=== PATIENT | female | born 1950 | race Caucasian/White ===

== ENCOUNTER → 2017-02-13 08:21 | Outpatient (CLI) | payer OTHER | END | disposition home or self-care (01) | LOC: D.CT 08:21 | DX: R10.84 Generalized abdominal pain (principal) ==

== ENCOUNTER → 2017-03-10 16:47 | Outpatient (CLI) | payer OTHER | END | disposition home or self-care (01) | LOC: D.MAMMO 16:47 | DX: Z12.31 Encounter for screening mammogram for malignant neoplasm of breast (principal) ==

== ENCOUNTER → 2017-04-22 13:38 | Outpatient (CLI) | payer MEDICARE | END | disposition home or self-care (01) | LOC: D.MAMMO 09:00 | DX: R92.8 Other abnormal and inconclusive findings on diagnostic imaging of breast (principal) ==

== ENCOUNTER → 2018-01-16 07:17 | Outpatient (CLI) | payer MEDICARE, OTHER | END | disposition home or self-care (01) | LOC: D.US 07:17 | DX: R10.9 Unspecified abdominal pain (principal) ==

== ENCOUNTER → 2018-06-17 19:02 | Outpatient (CLI) | payer MEDICARE, OTHER | END | disposition home or self-care (01) | LOC: D.MAMMO 13:15 | DX: Z12.31 Encounter for screening mammogram for malignant neoplasm of breast (principal) ==

== ENCOUNTER → 2018-07-20 08:08 | Outpatient (CLI) | payer MEDICARE, OTHER ==
[2018-07-20 09:38] LABS: ALBUMIN 3.6 g/dL (3.4-5.0); BILIRUBIN - DIRECT 0.15 mg/dL (0.00-0.30); BILIRUBIN - INDIRECT 0.51 mg/dL (0.00-1.00); BILIRUBIN - TOTAL 0.66 mg/dL (0.2-1.3); PROTEIN - SERUM 7.3 g/dL (6.4-8.2)
== END | disposition home or self-care (01) ==
LOC: D.US 08:08
PROVIDERS: Internal Medicine Gastroenterology
DX: K76.0 Fatty (change of) liver, not elsewhere classified (principal)

== ENCOUNTER → 2018-10-29 10:20 | Outpatient (CLI) | payer MEDICARE, OTHER ==
[~2018-10-29 10:20] MED LIST: LIPITOR10 MG PO
== END | disposition home or self-care (01) ==
LOC: D.US 10:20
PROVIDERS: ATTEND Surgery
DX: I83.893 Varicose veins of bilateral lower extremities with other complications (principal)

== ENCOUNTER 2018-10-29 13:20 | Emergency (ER) | payer MEDICARE, OTHER ==
[~2018-10-29] VITALS: Ht 165.1 cm; Wt 68.2 kg
[2018-10-29 13:29] VITALS: Ht 165.1 cm; Wt 68.2 kg
[2018-10-29] MEDS ORDERED: LIPITOR10 MG PO (13:33)
[2018-10-29 14:08] LABS: BASOPHILS 0.6 % (0-2); EOSINOPHILS 1.2 % (0-7); HEMATOCRIT 41.2 % (36.0-48.0); HEMOGLOBIN 13.4 g/dL (12-16); MCH 30.3 pg (26.0-34.0); MCHC 32.5 g/dL (31.0-37.0); MCV 93.2 fL (80.0-100.0); MEAN PLATELET VOLUME 10.2 fL (7.4-10.4); MONOCYTES 6.8 % (2-11); NEUTROPHILS 57.4 % (40-80); PLATELET COUNT 180 10x3/uL (130-400); RBC 4.42 10x6/uL (4.00-5.40); RDW 13.9 % (11.5-14.5)
[2018-10-29 14:28] LABS: ALBUMIN 3.7 g/dL (3.4-5.0); ALKALINE PHOSPHATASE 67 U/L (46-116); ALT (SGPT) 34 U/L (10-68); BILIRUBIN - TOTAL 0.37 mg/dL (0.2-1.3); CALC OSMOLALITY 280 mosm/kg (275-300); CALCIUM 8.9 mg/dL (8.5-10.1); CARBON DIOXIDE 30.1 mmol/L (21.0-32.0); CHLORIDE - SERUM 104 mmol/L (98-107); CREATININE - SERUM 0.8 mg/dL (0.6-1.3); GLUCOSE 128 mg/dL (74-106); POTASSIUM - SERUM 4.2 mmol/L (3.5-5.1); PROTEIN - SERUM 7.3 g/dL (6.4-8.2); SODIUM 139 mmol/L (136-145); UREA NITROGEN 14 mg/dL (7-18); eGFR NON AFRICAN AMERICAN 76 mL/min (90-120)
[2018-10-29 14:41] LABS: CKMB 0.7 U/L (0.0-3.6); CREATINE KINASE 90 UL (21-215); TROPONIN-I < 0.017 ng/mL (0.000-0.060)
[2018-10-29 15:30] VITALS: BP 176/62
[2018-10-29 16:13] LABS: APTT 27.8 SECONDS (22.8-39.4); INR 0.97 (0.85-1.17); PROTIME 12.8 SECONDS (11.6-15.0)
== END 2018-10-29 15:23 | disposition home or self-care (01) ==
LOC: D.ER 13:20
PROVIDERS: Family Medicine
DX: R55 Syncope and collapse (principal)

== ENCOUNTER 2018-12-23 08:55 | Day surgery (SDC) | payer MEDICARE, OTHER ==
[2018-12-22 10:34] LABS: HEMOGLOBIN 13.4 g/dL (12-16); MCH 30.8 pg (26.0-34.0); MCHC 33.5 g/dL (31.0-37.0); MEAN PLATELET VOLUME 10.1 fL (7.4-10.4); RBC 4.35 10x6/uL (4.00-5.40); RDW 13.9 % (11.5-14.5); WBC 4.2 10x3/uL (4.8-10.8)
[~2018-12-23] VITALS: Ht 160 cm; Wt 69.4 kg
--- NOTE | ~2018-12-23 | OP ---
PATIENT NAME: CRYSTAL LIMON MEDICAL RECORD: [id number] :54 LOCATION:[facility] ADMISSION DATE: SURGEON: ROYER SHANNON MD DATE OF OPERATION: 12/23/2018 PREOPERATIVE DIAGNOSES: 1. Pathologic greater saphenous venous reflux, right lower extremity. 2. Symptomatic varicosities, numerous, bilateral lower extremities. POSTOPERATIVE DIAGNOSES: 1. Pathologic greater saphenous venous reflux, right lower extremity. 2. Symptomatic varicosities, numerous, bilateral lower extremities. PROCEDURES: 1. VNUS endovascular radiofrequency ablation of the right greater saphenous vein. The length of greater saphenous vein treated was 62 cm. 2. Bilateral lower extremity avulsion phlebectomies times 54. SURGEON: Royer Shannon MD AMBULATORY CARE COORDINATOR: None. BLOOD LOSS: 200 cc. ANESTHESIA: General. COMPLICATIONS: None. The risks, possible complications, and alternatives to procedure were explained to the patient. She elects to proceed. The discussion specifically included, but was not limited to, bleeding requiring emergency reoperation, infection, bruising, paresthesias, and numbness as well as possible need for additional vein procedure or procedures. I also told her I could not guarantee that all the varicose veins will be removed with this procedure. OPERATIVE COURSE: The patient was conveyed to the operating room electively on 12/23/2018. General anesthesia was induced by the anesthesia staff. The singh over the varicose veins that had been placed in the holding area, while being chaperoned, were still present after the sterile prep. The patient was supine. She was positioned in the reverse Trendelenburg position. I percutaneously accessed the right greater saphenous vein in an antegrade fashion. Guidewire was passed easily. A dilator sheath was advanced. The dilator and wire were removed. Through the sheath, I advanced a radiofrequency catheter. This was advanced under ultrasound. The patient was positioned in the Trendelenburg position. I advanced the radiofrequency catheter so that its tip was a couple of centimeters from the saphenofemoral junction, within the greater saphenous vein. Under ultrasonographic guidance, I then injected a crystalloid solution into the perivenular tissues to act as a heat sink in order to avoid thermal damage to the surrounding structures. I then activated the radiofrequency catheter twice. With each activation, I pulled back 7 cm and activated the radiofrequency catheter again. The entire OPERATIVE REPORT [id number] CRYSTAL LIMON length treated is listed above. The radiofrequency catheter was removed. I then positioned the patient in the reverse Trendelenburg position. A foamed sclerosant was then used through the sheath as a sclerosing agent. The patient was then positioned in the Trendelenburg position. The sheath was removed. The puncture site was closed with a horizontal mattress 4-0 Vicryl Rapide suture. Through small skin nicks, I placed a phlebectomy hook and removed portions of the varicose veins. At no time was there any apparent nerve injury. Once I was satisfied that I have removed as many of the varicose veins as I could, pressure dressings were then applied and then a Coban dressing. The patient was then extubated and conveyed to post-anesthesia care unit where she was in stable condition. She is going to be dismissed home on [facility] as well as [place]. I will see her in the office in several weeks. I asked her to follow up with my nurse in the office on Friday for removal of this initial dressing. TRANSINT:[id number] Voice Confirmation ID: [id number] DOCUMENT ID: [id number] ROYER SHANNON MD CC: [id number] DICTATION DATE: 12/23/18 184 [employer] ENGINEER: 12/23/18 2254 [facility] 12/23/18 [facility] [address] [place] [address]
[~2018-12-23 08:55] MED LIST changes: +ASPIRIN EC81 M1 PO; +LEXAPRO20 MG PO; +MULTI-DAY VITAM1 TAB PO
[2018-12-23 09:12] VITALS: BP 143/62; Ht 160 cm; Wt 69.4 kg
--- NOTE | 2018-12-23 15:36 | NUR ---
PT UP TO BATHROOM TO URINATE AND BECAME DIZZY WHEN SHE SAW BLOOD ON HER LEFT UPPER LEG. ASSISTED BACK TO BED AND IVF W/O DRESSING REINFORCED TO UPPER THIGH BILATERALLY. DR MIRTHA STEPHEN. PT BACK IN REVERSE TRENDELENBERG
--- NOTE | 2018-12-23 16:46 | NUR ---
PT HAS SOME DRANAGE TO LEFT UPPER THIGH. PT FLAT IN BED NOW. PALP PULSES
--- NOTE | 2018-12-23 17:02 | NUR ---
1705 PT SITTING UP IN BED AND DOING WELL. TOLERATING FLUIDS AND REINFORCED UPPER LEFT THIGH WITH ABD AND 2 INCH SILK TAPE. PULSES PALP
--- NOTE | 2018-12-23 18:00 | NUR ---
1745 IV REMOVED AND PRESSURE HELD. ASSISTED TO BATHROOM TO URINATE AND NO BLEEDING NOTED. ASSISTED IN TRUCK WITH STOOL. TOLERATED WELL
== END 2018-12-23 18:00 | disposition home or self-care (01) ==
LOC: D.OPS 08:55 → D.PAN 09:15 → D.OPS 11:00
PROVIDERS: Anesthesiology; ATTEND Surgery
DX: I83.893 Varicose veins of bilateral lower extremities with other complications (principal)

== ENCOUNTER → 2018-12-31 09:17 | Outpatient (CLI) | payer MEDICARE, OTHER ==
[2018-12-23 09:12] VITALS: BMI 27.1
== END | disposition home or self-care (01) ==
LOC: D.RAD 09:17
PROVIDERS: ATTEND Orthopaedic Surgery
DX: M54.16 Radiculopathy, lumbar region (principal)

== ENCOUNTER 2019-06-30 22:40 | Emergency (ER) | payer MEDICARE, OTHER ==
[~2019-06-30] VITALS: Ht 160 cm; Wt 66.4 kg
[2019-06-30 22:44] VITALS: Ht 160 cm; Wt 66.4 kg
[2019-07-01] MEDS ORDERED: NAPROSYN500 MG PO (02:03)
[2019-07-01] MEDS ORDERED: CYCLOBENZAPRINE10 MG PO (02:03)
[2019-07-01 02:17] VITALS: BP 138/70
== END 2019-07-01 02:16 | disposition home or self-care (01) ==
LOC: D.ER 22:40
DX: M54.16 Radiculopathy, lumbar region (principal); E78.5 Hyperlipidemia, unspecified

== ENCOUNTER 2020-03-28 15:00 | Outpatient (CLI) | payer MEDICARE, OTHER ==
[2019-06-30 22:44] VITALS: BMI 25.9
[~2020-03-28 15:00] MED LIST changes: +CYCLOBENZAPRINE10 MG PO; +NAPROSYN500 MG PO
== END 2020-03-28 23:59 | disposition home or self-care (01) ==
LOC: D.MAMMO 15:00
PROVIDERS: ATTEND Family Medicine
DX: Z12.31 Encounter for screening mammogram for malignant neoplasm of breast (principal)